=== PATIENT | male | born 1950 | race Caucasian/White ===

== ENCOUNTER 2018-10-11 08:19 | Day surgery (SDC) | payer OTHER ==
[2018-10-11] MEDS ORDERED: CEFAZOLIN/SWI 1gm 1 GM/10 ML SYR ONE (08:57)
[2018-10-11] MEDS ORDERED: Ringers Lactate 1,000 ML IV ONE ×2 (08:57→10:51)
[2018-10-11] MEDS ORDERED: BUPIVACAINE 0.5% PF 10 ML VIAL ONE (09:03)
[2018-10-11] MEDS ORDERED: PROPOFOL 200 MG/20 ML VIAL IV ONE (09:09)
[2018-10-11] MEDS ORDERED: FENTANYL CITR 100 MCG/2 ML ONE (09:09)
[2018-10-11] MEDS ORDERED: MIDAZOLAM HCL 2 MG/2 ML INJ ONE (09:09)
[2018-10-11] MEDS ORDERED: LIDOCAINE 2% MPF 5 ML VIAL ONE (09:09)
[2018-10-11] MEDS ORDERED: ONDANSETRON 4 MG/2 ML VIAL ONE (09:51)
[2018-10-11] MEDS ORDERED: GLYCOPYRROLATE 0.2 MG/ML SYR ONE (09:52)
[2018-10-11] MEDS ORDERED: NEOSTIGMINE 1 MG/ML -10 ML VIAL ONE (09:53)
[2018-10-11] MEDS ORDERED: EPHEDRINE SULF 50 MG/10 ML SYR ONE (09:56)
[2018-10-11] MEDS ORDERED: HYDROCODONE/APAP 7.5/325 MG TAB ONE (11:49)
--- NOTE | 2018-10-11 22:09 | OP ---
Date of Procedure: 10/11/2018 Surgeon: Phan Gurrola MD Preoperative Diagnosis: Right inguinal hernia. Postoperative Diagnosis: Right inguinal hernia. Procedure: Repair of right inguinal hernia. Estimated Blood Loss: Minimal. Specimen: Cord lipoma. Findings: Direct right inguinal hernia with cord lipoma. Anesthesia: General. Complications: None. Disposition: The patient tolerated the procedure in stable condition and taken to Recovery in good g eneral condition. Procedure In Detail: The patient was brought to the OR, and placed in supine position. General anes thesia was begun. The patient was prepped and draped in usual sterile fashion. Marcaine 0.5% was in filtrated locally. A 15-blade was used to make a 4 cm oblique incision between the right anterior il iac superior spine and pubic tubercle. Subcutaneous tissue divided. Liliane's fascia was identified and divided. Aponeurosis was identified and mobilized inferiorly to expose the shelving edge then ap oneurosis was opened through the external ring. Ilioinguinal nerve was identified and retracted out of the field of dissection. Cord mobilized and skeletonized. A large direct hernia present with pre peritoneal fat and cord lipoma. Cord skeletonized and the cord lipoma high ligation done with a 2-0 chromic tie and cord lipoma excised, sent to Pathology. No indirect sac visualized. Then repair of the floor was accomplished with 2-0 Prolene starting at the pubic tubercle to reapproximate the shelv ing edge to the conjoint tendon, created new internal ring then Marlex mesh plug placed to the epidemiology intern al ring, secured with VersaTack stapler and Onlay mesh was placed on the inguinal floor, secured medi ally to the pubic tubercle, superiorly to the conjoint tendon and inferior to the shelving edge and l aterally to each other. Then, cord structures and ilioinguinal nerve placed back in anatomical locat ion and 2-0 Prolene was used to close the aponeurosis, 3-0 chromic used to close the Liliane fascia. S taples were used to close the skin. Sterile dressing was applied. The patient was awakened and take n to Recovery in good general condition. /MODL Voice ID: [id number] Report ID: [id number]
== END 2018-10-11 16:20 | disposition home or self-care (01) ==
LOC: OR 08:19
PROVIDERS: ATTEND Surgery
PROC: 0YU50JZ Supplement Right Inguinal Region with Synthetic Substitute, Open Approach (ICD-10-PCS; principal; 2018-10-11 11:00)
DX: K40.90 Unilateral inguinal hernia, without obstruction or gangrene, not specified as recurrent (principal)
CPT/HCPCS: 88302; 49505; J2704; J2710; J2250; J3010; J0690; J2405